=== PATIENT | female | born 1935 | race Two or more races ===

== ENCOUNTER 2024-10-24 12:48 | Emergency (ER) | payer OTHER ==
[~2024-10-24] VITALS: Ht 157.5 cm; Wt 49.9 kg
[2024-10-24] MEDS ORDERED: ATACAND4 MG (12:57)
[2024-10-24] MEDS ORDERED: ATORVASTATIN CA10 MG PO (12:58)
[2024-10-24] MEDS ORDERED: SYNTHROID50 MCG PO (12:58)
[2024-10-24] MEDS ORDERED: 0.9 % SODIUM CHLORIDE 250 ML IV SCH (14:45)
[2024-10-24 15:28] LABS: HEMATOCRIT 35.9 % (36.0-45.00); HEMOGLOBIN 11.7 g/dL (12.0-15.00); MEAN CELL VOLUME 90.9 fL (80.00-100.00); MEAN CORPUSCULAR HEMOGLOBIN 29.6 pg (27.00-32.0); MEAN CORPUSCULAR HGB CONC 32.6 g/dl (32.0-36.0); PLATELET COUNT 319 K/uL (150-450); RED BLOOD COUNT 3.95 M/uL (4.00-6.00); RED CELL DISTRIBUTION WIDTH 13.5 % (11.5-14.5)
[2024-10-24 15:36] LABS: PH,URINE 7.5 (5.0-8.0); URINE APPEARANCE Clear; URINE BILIRRUBIN Negative (NEGATIVE); URINE BLOOD Negative; URINE COLOR Yellow; URINE GLUCOSE Negative (NEGATIVE); URINE KETONE 15 (NEGATIVE); URINE LEUKOCYTE Trace; URINE NITRATE Negative; URINE PROTEIN Negative (NEGATIVE); URINE UROBILINOGEN 0.2 E.U./dl
[2024-10-24 15:36] LABS: BILIRUBIN TOTAL 0.5 mg/dL (0.3-1.2); BILIRUBIN,CONJUGATED 0.13 mg/dL (0.0-0.2); BILIRUBIN,UNCONJUGATED 0.37 mg/dL (0.0-0.6); CALCIUM 10.1 mg/dL (8.5-10.1); CREATININE SERUM 0.9 mg/dL (0.55-1.02); GFR 58.95; GLOBULINA 3.7 G/DL (2.4-3.5); POTASSIUM 3.83 mEq/L (3.5-5.1); TOTAL PROTEIN 7.7 gm/dL (6.4-8.2)
[2024-10-24 15:40] LABS: URINE BACTERIA 243.5 uL (0.0-1933); URINE EPITHELIAL CELLS 9.1 uL (0.0-38.8); URINE WBC 8.6 uL (0.0-23.2)
[2024-10-24] MEDS ORDERED: hydrOXYzine PAMOATE 25 MG CAPSULE PO STA (16:39)
[2024-10-24] MEDS ORDERED: MECLIZINE HCL 25 MG TABLET PO STA (16:39)
[2024-10-24] MEDS ORDERED: hydrOXYzine PAMOATE 25 MG CAPSULE PO ONE ×2 (16:41→16:43)
[2024-10-24] MEDS ORDERED: MECLIZINE HCL 25 MG TABLET PO ONE ×2 (16:41→16:43)
== END 2024-10-24 19:42 | disposition home or self-care (01) ==
LOC: ER 12:48
PROVIDERS: Emergency Medicine
DX: H81.10 Benign paroxysmal vertigo, unspecified ear (principal); R53.1 Weakness; E03.8 Other specified hypothyroidism; Z86.39 Personal history of other endocrine, nutritional and metabolic disease
CPT/HCPCS: 36415; 93005; 96365; 96366; 99282; J7050